=== PATIENT | female | born 1995 | race African-American/Black ===

== ENCOUNTER 2024-08-16 14:43 | Emergency (ER) | payer OTHER ==
[~2024-08-16] VITALS: Ht 172.7 cm; Wt 82.0 kg
[2024-08-16 14:46] VITALS: O2SAT 100
[2024-08-16 15:17] LABS: BASOPHILS % 1.0 % (0.0-2.0); EOSINOPHILS % 3.4 % (0.0-5.0); HEMATOCRIT. 35.2 % (36.0-48.0); HEMOGLOBIN. 11.3 g/dL (12.0-16.0); LYMPHOCYTES % 27.3 % (20.0-50.0); MEAN PLATELET VOLUME 8.7 fl (7.4-10.4); MONOCYTES % 6.4 % (2.0-8.0); NEUTROPHILS % 61.9 % (40.0-76.0); PLATELET 262 x1000/uL (130-400); RED BLOOD CELL COUNT 4.65 mill/uL (4.2-5.4); RED CELL DISTRIBUTION WIDTH 16.5 % (11.6-14.6)
[2024-08-16 15:31] LABS: CREATININE 0.9 mg/dL (0.6-1.0); UREA NITROGEN BLOOD 12 mg/dL (9-23)
[2024-08-16 15:32] LABS: ETHANOL BLOOD < 10 mg/dL (<10)
[2024-08-16 17:58] VITALS: BP 106/80; PULSE 80; RESP 15; TEMP 36.6; O2SAT 99
== END 2024-08-16 18:10 | disposition home or self-care (01) ==
LOC: ER 14:43
DX: G40.909 Epilepsy, unspecified, not intractable, without status epilepticus (principal); J45.909 Unspecified asthma, uncomplicated
CPT/HCPCS: 36415; 80048; 80320; 85025; 99283; G0480